=== PATIENT | male | born 2000 | race Caucasian/White ===

== ENCOUNTER 2022-11-16 21:38 | Emergency (ER) | payer SELFPAY ==
[~2022-11-16] VITALS: Ht 177.8 cm; Wt 80.0 kg
[2022-11-16 21:44] VITALS: BP 139/66; O2SAT 99
[2022-11-16] MEDS ORDERED: ACETAMINOPHEN 325MG TABLET PO ONE (23:45)
[2022-11-17] MEDS ORDERED: NAPR-1129 MT (01:08)
[2022-11-17 01:25] VITALS: PULSE 70; RESP 16; TEMP 98.5
== END 2022-11-17 01:26 | disposition home or self-care (01) ==
LOC: ER 21:55
DX: S09.90XA Unspecified injury of head, initial encounter (principal); G89.11 Acute pain due to trauma; W51.XXXA Accidental striking against or bumped into by another person, initial encounter; Y93.89 Activity, other specified; Y92.810 Car as the place of occurrence of the external cause; Y99.8 Other external cause status
CPT/HCPCS: 70486; 99284